=== PATIENT | female | born 1990 | race Caucasian/White ===

== ENCOUNTER 2016-12-31 22:19 | Inpatient (IN) | payer OTHER ==
[~2016-12-31] VITALS: Ht 162.6 cm; Wt 85.0 kg
[2016-12-31] MEDS ORDERED: SOD CHLORIDE 0.9% 1,000 ML IV STA (22:36)
[2016-12-31] MEDS ORDERED: morphine 4 MG/ML VIAL IV STA (22:56)
[2016-12-31] MEDS ORDERED: ONDANSETRON 4 MG INJ IV STA (22:56)
[2016-12-31] MEDS ORDERED: morphine 4 MG/ML VIAL ONE (22:59)
[2016-12-31] MEDS ORDERED: ONDANSETRON 4 MG INJ ONE (22:59)
[2016-12-31 23:14] LABS: ADD SCAN DIFF NO
[2016-12-31 23:15] LABS: ABNORMAL IP MESSAGE 1; HEMATOCRIT 37.4 % (37.0-47.0); HEMOGLOBIN 13.1 g/dl (12.0-16.0); MEAN CORPUSCULAR HEMOGLOBIN 32.1 pg (29.0-33.0); MEAN CORPUSCULAR VOLUME 91.7 fl (82.0-101.0); MEAN PLATELET VOLUME 10.3 fl (7.4-10.4); PLATELET COUNT 186 10^3/UL (140-415); RED BLOOD COUNT 4.08 10^6/ul (4.20-5.40); WHITE BLOOD COUNT 20.3 10^3/ul (4.8-10.8)
[2016-12-31] MEDS ORDERED: HYDROmorphONE 1 MG/ML SYG IV STA (23:29)
[2016-12-31 23:34] LABS: ALBUMIN/GLOBULIN RATIO 1.73; BILIRUBIN,INDIRECT 0.6 mg/dl (0-1.1); BILIRUBIN,TOTAL 0.6 mg/dl (0.2-1.3); CALCIUM 8.7 mg/dl (8.4-10.2); CREATININE 1.09 mg/dl (0.44-1.00); POTASSIUM 3.9 mmol/L (3.5-5.1); TOTAL PROTEIN 6.3 g/dl (6.1-8.1)
[2017-01-01 00:14] LABS: ADD UMIC YES; URINE BILIRUBIN (Dip) NEGATIVE (NEGATIVE); URINE BLOOD (Dip) TRACE (NEGATIVE); URINE COLOR LT. YELLOW (YELLOW); URINE GLUCOSE (Dip) NEGATIVE (NEGATIVE); URINE KETONES (Dip) NEGATIVE (NEGATIVE); URINE LEUKOCYTE ESTERASE (Dip) 1+ (NEGATIVE); URINE NITRITE (Dip) NEGATIVE (NEGATIVE); URINE TOTAL PROTEIN (Dip) NEGATIVE (NEGATIVE); URINE UROBILINOGEN (Dip) 0.2 E.U./dL (0.1-1.0)
[2017-01-01 00:30] LABS: BACTERIA,URINE FEW; SQUAMOUS EPITHELIAL CELL,UR FEW; URINE RBCS 0-2 /HPF (0)
[2017-01-01 00:31] LABS: LYMPHOCYTES # 0.6 10^3/ul (0.8-2.9); MONOCYTE # 0.2 10^3/ul (0.3-0.9); NEUTROPHIL # 17.7 10^3/ul (1.6-7.5); PLATELET ESTIMATE PLT APPEAR ADEQUATE
[2017-01-01] MEDS ORDERED: HYDROmorphONE 1 MG/ML SYG IV STA ×2 (03:59→06:51)
[2017-01-01] MEDS ORDERED: SOD CHLORIDE 0.9% 1,000 ML IV SCH (06:55)
[2017-01-01] MEDS ORDERED: NACL 0.9% 3 ML SYG IV SCH (07:00)
[2017-01-01] MEDS ORDERED: METOCLOPRAMIDE 10 MG INJ IV PRN (07:00)
[2017-01-01] MEDS ORDERED: CEFEPIME 1GM/50 ML (PMX) 50 ML IVPB SCH ×2 (07:00→07:30)
[2017-01-01] MEDS ORDERED: morphine 4 MG/ML VIAL IV PRN (07:00)
[2017-01-01] MEDS ORDERED: ACETAMINOPHEN 325 MG TAB PO PRN (07:00)
[2017-01-01 09:52] VITALS: PULSE 87; TEMP 100.6
--- NOTE | 2017-01-01 10:06 | QN ---
Documentation Comment Observation Note: Time: 4 hours Family Hx: Negative for diabetes Evaluation: Multiple exams showed improving symptoms and no evidence of clinical decompensation. KECIA CAMARILLO MD Jan 01, 2017 10:06
[2017-01-01 10:11] LABS: ADD SCAN DIFF NO
[2017-01-01 10:19] LABS: ABNORMAL IP MESSAGE 1; BASOPHILS % 0.2 % (0.0-2.0); HEMATOCRIT 37.2 % (37.0-47.0); HEMOGLOBIN 12.6 g/dl (12.0-16.0); LYMPHOCYTES # 0.8 10^3/ul (0.8-2.9); LYMPHOCYTES % 3.2 % (15.0-51.0); MEAN CORPUSCULAR HEMOGLOBIN 31.6 pg (29.0-33.0); MEAN CORPUSCULAR HGB CONC 33.9 g/dl (32.0-37.0); MEAN CORPUSCULAR VOLUME 93.2 fl (82.0-101.0); MEAN PLATELET VOLUME 10.9 fl (7.4-10.4); MONOCYTE # 0.7 10^3/ul (0.3-0.9); NEUTROPHIL # 22.6 10^3/ul (1.6-7.5); PLATELET COUNT 193 10^3/UL (140-415); RED BLOOD COUNT 3.99 10^6/ul (4.20-5.40); RED CELL DISTRIBUTION WIDTH 13.2 % (11.5-14.5); WHITE BLOOD COUNT 24.3 10^3/ul (4.8-10.8)
[2017-01-01 10:32] LABS: ALBUMIN 3.7 g/dl (3.3-4.9); ALBUMIN/GLOBULIN RATIO 1.48; BILIRUBIN,INDIRECT 0.6 mg/dl (0-1.1); BILIRUBIN,TOTAL 0.6 mg/dl (0.2-1.3); CALCIUM 8.1 mg/dl (8.4-10.2); CREATININE 1.19 mg/dl (0.44-1.00); POTASSIUM 4.1 mmol/L (3.5-5.1); TOTAL PROTEIN 6.2 g/dl (6.1-8.1)
[2017-01-01] MEDS ORDERED: SOD CHLORIDE 0.9% 1,000 ML IV ONE (11:00)
[2017-01-01] MEDS ORDERED: VANCOMYCIN IV PER PHARMACY XX SCH (11:00)
[2017-01-01] MEDS: HYDROmorphONE 1 MG/ML SYG IV PRN ×2 (11:15→21:55)
[2017-01-01] MEDS: HEPARIN 5,000 UNIT/0.5 ML VIAL SC SCH ×2 (11:27→20:34)
[2017-01-01 11:39] VITALS: Ht 162.6 cm; Wt 85.0 kg
[2017-01-01] MEDS ORDERED: ONDANSETRON 4 MG INJ IV PRN (12:00)
[2017-01-01] MEDS: SOD CHLORIDE 0.9% 1,000 ML IV SCH ×2 (12:00→23:07)
[2017-01-01] MEDS ORDERED: VANCOMYCIN 1.5 GM in SOD CHLORIDE 0.9% 250 ML IVPB SCH (12:00)
--- NOTE | 2017-01-01 13:03 | RADRPT ---
PROCEDURE: XR Abdomen CLINICAL INDICATION: Kidney stone, hydronephrosis TECHNIQUE: An AP supine radiograph of the abdomen was submitted. COMPARISON: None FINDINGS: The bowel gas pattern is unremarkable. No organomegaly or discrete mass is identified. No pathological calcification is identified. The osseous elements appear unremarkable. IMPRESSION: Nonspecific abdomen Physician Cathy Date Time Electronically viewed and signed by Mann Baig Physician on 01/01/2017 13:03 /
[2017-01-01] MEDS: CEFTRIAXONE 1 GM/50 ML (PMX) 50 ML IVPB SCH (18:02)
[2017-01-01 19:40] VITALS: BP 96/59; RESP 20
[2017-01-01] MEDS ORDERED: VANCOMYCIN 1 GM in NS 250 ML IVPB SCH (22:00)
[2017-01-02 00:36] VITALS: BP 106/61; RESP 19
[2017-01-02] MEDS: HYDROmorphONE 1 MG/ML SYG IV PRN ×3 (04:58→19:42)
[2017-01-02 06:16] LABS: ADD SCAN DIFF NO
[2017-01-02 06:21] LABS: BASOPHILS % 0.2 % (0.0-2.0); EOSINOPHILS % 0.1 % (0.0-7.0); HEMATOCRIT 34.8 % (37.0-47.0); HEMOGLOBIN 12.1 g/dl (12.0-16.0); LYMPHOCYTES # 1.2 10^3/ul (0.8-2.9); LYMPHOCYTES % 5.7 % (15.0-51.0); MEAN CORPUSCULAR HEMOGLOBIN 31.8 pg (29.0-33.0); MEAN CORPUSCULAR HGB CONC 34.8 g/dl (32.0-37.0); MEAN CORPUSCULAR VOLUME 91.6 fl (82.0-101.0); MEAN PLATELET VOLUME 11.5 fl (7.4-10.4); NEUTROPHILS % 88.5 % (39.0-77.0); PLATELET COUNT 161 10^3/UL (140-415); RED CELL DISTRIBUTION WIDTH 13.2 % (11.5-14.5); WHITE BLOOD COUNT 20.3 10^3/ul (4.8-10.8)
--- NOTE | 2017-01-02 06:39 | HP ---
DATE OF ADMISSION: 12/31/2016 TIME SEEN: 10:00 a.m. The patient is a 26-year-old female with no significant past medical history who initially went an outside hospital for flank pain and fever. She was diagnosed with pyelonephritis and left sided obstructive uropathy secondary to ureteral calculi and was transferred here because of insurance reason for further management . Patient was supposed to be directly admitted; however, because of the bed situation she was directly sent to our ER. When she presented here, heart rate was 128 and febrile with temperature of 100.4. On evaluation, her vitals are stable shows a WBC of 20,000 with WBC of 20,000. Her creatinine was 1.09. While she was in the ER, she was given Dilaudid multiple times, morphine HPI. PAST MEDICAL HISTORY: As per HPI. SOCIAL HISTORY: Denied a history of tobacco, alcohol or illicit drug use. ALLERGIES: NO KNOWN DRUG ALLERGIES. HOME MEDICATIONS: None. PHYSICAL EXAMINATION VITAL SIGNS: Blood pressure 98/56, heart rate 87, respiratory rate 16, temperature 100.6, oxygen saturation 96% on room air. GENERAL: The patient looks uncomfortable due to her pain. ____ HEENT: No obvious head deformity. Extraocular muscles intact. CARDIOVASCULAR: ____ irregular rhythm. LUNGS: Clear. ABDOMEN: Soft. There is tenderness in the flank area. EXTREMITIES: No edema. NEUROLOGIC: No focal deficits. LABORATORY: There were no pertinent laboratories listed in the HPI. IMPRESSION: 1. Sepsis secondary to pyelonephritis. 2. Left nephrolithiasis. 3. Presumed acute kidney injury. PLAN: She will be placed on broad spectrum antibiotics. She will also receive IV fluids. We will provide pain medication as needed. We will follow up on urine culture and blood culture results. Will order a KUB in place and place a urology consult. Avoid nephrotoxins and monitor her kidney function closely. ____ Dictated By: RHETT WELLER/ISHMAEL Conf#: [id number] DID#: [id number] LEE
[2017-01-02 06:51] LABS: CALCIUM 7.9 mg/dl (8.4-10.2); CREATININE 1.32 mg/dl (0.44-1.00); MAGNESIUM 1.6 mg/dl (1.7-2.5); PHOSPHORUS 2.6 mg/dl (2.5-4.9); POTASSIUM 3.7 mmol/L (3.5-5.1)
[2017-01-02 07:00] VITALS: BP 112/56; RESP 18
[2017-01-02] MEDS: SOD CHLORIDE 0.9% 1,000 ML IV SCH ×3 (07:13→16:43)
[2017-01-02] MEDS: HEPARIN 5,000 UNIT/0.5 ML VIAL SC SCH ×2 (09:13→21:09)
[2017-01-02] MEDS ORDERED: MAGNESIUM OXIDE 400 MG TAB PO ONE (10:30)
[2017-01-02] MEDS ORDERED: MAGNESIUM HYDROXIDE 30ML CUP PO PRN (15:00)
[2017-01-02] MEDS ORDERED: SENNA TAB PO SCH (15:00)
[2017-01-02] MEDS: CEFTRIAXONE 1 GM/50 ML (PMX) 50 ML IVPB SCH (16:42)
[2017-01-02] MEDS: DOCUSATE SODIUM 100 MG CAP PO SCH ×2 (16:43→21:09)
[2017-01-02] MEDS: SENNA TAB PO SCH ×2 (16:43→21:09)
--- NOTE | 2017-01-02 17:30 | PN ---
Date/Time of Note Date/Time of Note DATE: 01/02/17 TIME: 17:26 Assessment/Plan VTE Prophylaxis VTE Prophylaxis Intervention: heparin Lines/Catheters IV [facility] Peripheral IV Urinary Cath still in place: No Assessment/Plan Chief Complaint/Hosp Course 1. Sepsis secondary to pyelonephritis Continue Rocephin and follow up with urine culture 2. Left nephrolithiasis-appears to have resolved KUB is negative and patient's previous pain is resolved 3. Acute kidney injury secondary to obstruction from nephrolithiasis or sepsis- creatinine is trending up Obtain renal ultrasound Nephrology consultation Continue IV fluids and antibiotics 4. Constipation Senna and Colace Prophylaxis: Heparin Problems: Subjective 24 Hr Interval Summary Gastrointestinal: constipation Exam/Review of Systems Vital Signs Vitals Vital Signs Date Time Temp Pulse Resp B/P Pulse Ox O2 Delivery O2 Flow Rate FiO2 01/02/17 07:00 98.0 105 18 112/56 95 01/01/17 04:29 Room Air Intake and Output 01/01/17 01/01/17 01/02/17 15:00 23:00 07:00 Intake Total 1000 ml 1820 ml 2950 ml Balance 1000 ml 1820 ml 2950 ml Exam Constitutional: alert Respiratory: clear to auscultation Cardiovascular: regular rate and rhythm Gastrointestinal: soft, No distended Musculoskeletal: nl extremities to inspection Results Result Diagram: 01/02/17 0501 01/02/17 0501 Results 24 hrs Laboratory Tests Test 01/02/17 05:01 White Blood Count 20.3 H Red Blood Count 3.80 L Hemoglobin 12.1 Hematocrit 34.8 L Mean Corpuscular Volume 91.6 Mean Corpuscular Hemoglobin 31.8 Mean Corpuscular Hemoglobin Concent 34.8 Red Cell Distribution Width 13.2 Platelet Count 161 Mean Platelet Volume 11.5 H Neutrophils % 88.5 H Lymphocytes % 5.7 L Monocytes % 5.0 Eosinophils % 0.1 Basophils % 0.2 Nucleated Red Blood Cells % 0.0 Neutrophils # 18.0 H Lymphocytes # 1.2 Monocytes # 1.0 H Eosinophils # 0.0 Basophils # 0.0 Nucleated Red Blood Cells # 0.0 Sodium Level 138 Potassium Level 3.7 Chloride Level 109 Carbon Dioxide Level 24 Anion Gap 9 Blood Urea Nitrogen 10 Creatinine 1.32 H Glucose Level 106 Calcium Level 7.9 L Phosphorus Level 2.6 Magnesium Level 1.6 L Medications Medications Current Medications Metoclopramide HCl (Reglan) 10 mg Q6H PRN IV NAUSEA AND/OR VOMITING Last administered on 01/01/17 11:20; Admin Dose 10 MG; Start 01/01/17 at 07:00 Acetaminophen (Tylenol Tab) 650 mg Q6H PRN PO PAIN LEVEL 1-3 OR FEVER Last administered on 01/01/17 14:16; Admin Dose 650 MG; Start 01/01/17 at 07:00 Morphine Sulfate (morphine) 4 mg Q4H PRN IV SEVERE PAIN LEVEL 7-10; Start at 07:00 Heparin Sodium (Porcine) (Heparin (5000 Units/0.5 ml)) 5,000 unit Q12 SC Last administered on 01/02/17 09:13; Admin Dose 5,000 UNIT; Start 01/01/17 at 09:00 Hydromorphone HCl 1 mg 1 mg Q3H PRN IV PAIN Last administered on 01/02/17 12:35 ; Admin Dose 1 MG; Start 01/01/17 at 11:00 Sodium Chloride (NS) 1,000 ml @ 125 mls/hr Q8H IV Last administered on 16:43; Admin Dose 125 MLS/HR; Start 01/01/17 at 12:00 Ondansetron HCl 4 mg 4 mg Q6H PRN IV NAUSEA AND/OR VOMITING Last administered on 01/02/17 09:17; Admin Dose 4 MG; Start 01/01/17 at 12:00 Ceftriaxone Sodium (Rocephin) 50 ml @ 100 mls/hr Q24H IVPB Last administered on 01/02/17 16:42; Admin Dose 100 MLS/HR; Start 01/01/17 at 16:00 Docusate Sodium (Colace) 200 mg BID PO Last administered on 01/02/17 16:43; Admin Dose 200 MG; Start 01/02/17 at 15:00 Magnesium Hydroxide (Milk Of Mag) 30 ml DAILY PRN PO CONSTIPATION; Start at 15:00 Senna (Senokot) 2 tab BID PO Last administered on 01/02/17 16:43; Admin Dose 2 TAB; Start 01/02/17 at 15:00 NANDA SILVER Jan 02, 2017 17:30
--- NOTE | 2017-01-02 20:01 | RADRPT ---
PROCEDURE: Retroperitoneal US. CLINICAL INDICATION: Renal insufficiency TECHNIQUE: Multiple sonographic images of the kidneys and retroperitoneum were obtained. The imag es were reviewed on a PACS workstation. COMPARISON: No prior studies are available for comparison. FINDINGS: The kidneys are normal in size, contour, cortical thickness and cortical echogenicity. The right kidney measures 12 cm. The left kidney measures 12.9 cm. No kidney stones are visualized. There is mild left-sided hydronephrosis. The urinary bladder is normal. RPTAT: AA IMPRESSION: Mild left-sided hydronephrosis. .Esteban Kmi MD, Date Time Electronically viewed and signed by .Esteban Kim MD, MD on 01/02/2017 20:01 .S/
[2017-01-02 20:28] VITALS: BP 102/54; RESP 19
[2017-01-03] MEDS: HYDROmorphONE 1 MG/ML SYG IV PRN ×2 (00:07→06:46)
[2017-01-03] MEDS: SOD CHLORIDE 0.9% 1,000 ML IV SCH ×3 (01:49→09:34)
[2017-01-03 05:12] LABS: ADD SCAN DIFF NO
[2017-01-03 05:20] LABS: BASOPHILS % 0.1 % (0.0-2.0); EOSINOPHILS # 0.1 10^3/ul (0.0-0.5); EOSINOPHILS % 0.4 % (0.0-7.0); HEMATOCRIT 35.4 % (37.0-47.0); HEMOGLOBIN 12.4 g/dl (12.0-16.0); LYMPHOCYTES # 1.2 10^3/ul (0.8-2.9); LYMPHOCYTES % 8.1 % (15.0-51.0); MEAN CORPUSCULAR HEMOGLOBIN 31.6 pg (29.0-33.0); MEAN CORPUSCULAR VOLUME 90.1 fl (82.0-101.0); MEAN PLATELET VOLUME 10.4 fl (7.4-10.4); MONOCYTES % 6.6 % (0.0-11.0); NEUTROPHIL # 12.8 10^3/ul (1.6-7.5); NEUTROPHILS % 84.3 % (39.0-77.0); PLATELET COUNT 164 10^3/UL (140-415); RED BLOOD COUNT 3.93 10^6/ul (4.20-5.40); RED CELL DISTRIBUTION WIDTH 12.4 % (11.5-14.5); WHITE BLOOD COUNT 15.2 10^3/ul (4.8-10.8)
[2017-01-03 05:43] LABS: CALCIUM 8.5 mg/dl (8.4-10.2); CREATININE 1.16 mg/dl (0.44-1.00); PHOSPHORUS 2.7 mg/dl (2.5-4.9); POTASSIUM 3.8 mmol/L (3.5-5.1)
[2017-01-03] MEDS: DOCUSATE SODIUM 100 MG CAP PO SCH (09:26)
[2017-01-03 09:28] VITALS: BP 105/53; RESP 19
[2017-01-03] MEDS: HEPARIN 5,000 UNIT/0.5 ML VIAL SC SCH (09:28)
[2017-01-03] MEDS ORDERED: LACTULOSE 30ML CUP PO PRN (09:30)
[2017-01-03] MEDS: SENNA TAB PO SCH (09:50)
--- NOTE | 2017-01-03 10:00 | CONS ---
DATE OF ADMISSION: 12/31/2016 DATE OF CONSULTATION: 01/03/2017 TYPE OF CONSULTATION: Nephrology REASON FOR CONSULTATION: Acute kidney injury with a creatinine of 1.32. REFERRING PHYSICIAN: Karla Tamez MD HISTORY OF PRESENT ILLNESS: This is a 26-year-old female who has a past medical history of previous constipation, presented with sepsis secondary to acute pyelonephritis. The patient has a left neph rolithiasis, appears to have resolved. Her KUB was negative for any kidney stones, but she is noted to have acute kidney injury, possibly secondary to obstruction from nephrolithiasis and sepsis. __ ___ her creatinine was trending up. The patient had a renal ultrasound done yesterday which shows r ight and left kidneys are normal in size, mild left-sided hydronephrosis. At the time of the my evaluation, the patient is hemodynamically stable. Her creatinine is high, bu t patient denies any symptoms of hematuria, dysuria, increased urinary frequency, fever, chills, hea dache, dizziness, blurry vision, constipation, diarrhea. REVIEW OF SYSTEMS: Positive for left flank pain and constipation. Other review of systems has been obtained and is negative except what is mentioned in the history of present illness. PAST MEDICAL HISTORY: None. PAST SURGICAL HISTORY: None. SOCIAL HISTORY: No smoking, alcohol or recreational drug use. The patient has been drinking coffee more often than other drinks. FAMILY HISTORY: No family history of chronic kidney disease/stroke/coronary artery disease. PHYSICAL EXAMINATION: VITAL SIGNS: Temperature 99, heart rate 87, respirations 19, blood pressure 102/54, saturation 99% on room air. GENERAL: Awake, alert, moderate distress. HEENT: Pupils equal, round, reactive to light and accommodation. Extraocular muscles are intact. NECK: Supple, no JVD, no lymphadenopathy. LUNGS: Clear to auscultation bilaterally, no crackles, no wheezes. HEART: S1, S2, with regular rhythm, no murmur. ABDOMEN: Soft, nontender, nondistended. Bowel sounds are present. MUSCULOSKELETAL: The patient has mild left CVA tenderness. The back is normal. NEUROLOGICAL: Alert, awake x3. No focal deficits. Cranial nerves II through XII intact. PSYCHIATRIC: Appropriate affect and mood. LABORATORY DATA/DIAGNOSTIC IMAGING: Sodium 138, potassium 3.7, chloride 109, bicarbonate 24, BUN 10 , creatinine 1.32, calcium 7.9, magnesium 1.6. WBC 20.3 which improved from 24.3, hemoglobin 12.1, platelet count 161. IMPRESSION: This is a 26-year-old female who has a past medical history of intermittent constipatio n, was admitted for possible left pyelonephritis and sepsis secondary to pyelonephritis. The patien t has left nephrolithiasis which looks like she may have recently passed a stone and renal has been consulted for: 1. Acute kidney injury secondary to obstruction from a left kidney stone and also possibly secondar y to sepsis from pyelonephritis. 2. Sepsis secondary to acute pyelonephritis. 3. Left nephrolithiasis, possibly recently passed stone. 4. Constipation, severe. PLAN: Thank you, Dr. Karla Tamez, for this consultation. The patient is getting IV fluids NS at 125 mL/hour. I am expecting the patient's creatinine to improve with IV fluid hydration and she rec ently passed a stone and on top of that, she also is getting IV ceftriaxone for UTI. Her urine cult ure grew enterococcus and more than 100,000 colonies which was melchor-sensitive. No need for any additional renal workup. Expecting the patient's creatinine to improve with IV flui d hydration. Regarding her stone workup, she is advised to have a low salt diet and low protein t. She has been explained about the stone-related diet and I recommended her to follow up with me daljit n the outpatient clinic 1 to 2 weeks after discharge. Total time spent in this patient's evaluation to more than 60 minutes. I will give the patient lactulose for her constipation. Dictated By: TERRI NEWSOME MD, KP/ISHMAEL Conf#: [id number] DID#: [id number]
[2017-01-03] MEDS ORDERED: CIPR500T4 PO (10:20)
--- NOTE | 2017-01-03 10:20 | PDOCDIS ---
Discharge Instructions CONDITION Patient Condition: Good HOME CARE INSTRUCTIONS: Diet Instructions: Reduced Calorie ACTIVITY: Activity Restrictions: No Restrictions FOLLOW UP/APPOINTMENTS Appointments F/U WITH YOUR PCP IN 1-2 WEEKS NANDA SILVER Jan 03, 2017 10:20
[2017-01-03] MEDS ORDERED: BISACODYL (EC) 5 MG TAB PO ONE (10:30)
--- NOTE | 2017-01-03 16:31 | DS ---
DATE OF ADMISSION: 12/31/2016 DATE OF DISCHARGE: 01/03/2017 DISCHARGE DIAGNOSES: 1. Sepsis secondary to pyelonephritis, now improved. 2. Left side nephrolithiasis, resolved. 3. Acute kidney injury, resolved, etiology likely secondary to sepsis and/or obstruction from nephr olithiasis. HOSPITAL COURSE: The patient is a 26-year-old female with history of obesity, otherwise no medical history. The patient presents with flank pain, fever. She was found to have pyelonephritis, left-s ided obstructive uropathy secondary to ureteral calculi. She was transferred to [facility] for further management. The patient did have a question of sepsis and etiology once again was pyel onephritis. The patient's urine culture here showed enterococcus that was sensitive to multiple ant ibiotics. The patient's sepsis did improve significantly. The patient did have acute kidney injury secondary to obstruction and/or sepsis, which did improve. Patient was seen by Nephrology. Christy jacobs was also constipated and was given medication for that, which resolved the issue. On the day of d ischarge, the patient's vitals, labs and physical exam was stable. She has no acute complaints. Qu estioned answered. CONDITION ON DISCHARGE: Stable. DISPOSITION: To home. MEDICATIONS: The patient was given a prescription for Cipro 500 mg p.o. b.i.d. for 7 days. She has no reported home medications. FOLLOWUP: The patient is to follow up with PCP in 1 to 2 weeks. Greater than 30 minutes were spent coordinating discharge for the patient. Dictated By: NANDA RAE/ISHMAEL Conf#: [id number] DID#: [id number]
== END 2017-01-03 17:00 | disposition home or self-care (01) | DRG 872 ==
LOC: E/R 22:19 → MS1 23:09
PROVIDERS: ADMIT Internal Medicine; ATTEND Internal Medicine
DX: A41.9 Sepsis, unspecified organism (principal); N17.9 Acute kidney failure, unspecified; N20.0 Calculus of kidney; N13.9 Obstructive and reflux uropathy, unspecified; N10 Acute pyelonephritis; K59.00 Constipation, unspecified; E66.9 Obesity, unspecified
CPT/HCPCS: 74000; 76775; 80048; 80053; 81001; 83690; 83735; 84100; 85025; 87040; 87086; J0692; J0696; J1170; J1644; J2270; J2405; J2765; J3370; J7030; J7050